=== PATIENT | male | born 1985 | race Caucasian/White ===

== ENCOUNTER 2020-01-04 19:01 | Emergency (ER) | payer BC, SELFPAY ==
--- NOTE | ~2020-01-04 | XR_ITS ---
EXAMINATION: XR foot LT min 3V EXAM DATE: 01/04/2020 19:38 INDICATION: Initial encounter following injury, with pain of the left foot. TECHNIQUE: Left foot dorsoplantar, lateral and oblique projections obtained and reviewed. There is n o prior study for comparison. FINDINGS: Left metatarsal bones unremarkable. There are no acute fractures or dislocations identifi ed. There is no subcutaneous gas. The soft tissue is unremarkable. There are no radiopaque foreig n bodies. IMPRESSION: No acute osseous findings. Reviewed, dictated and finalized at location A. IMPRESSION: No acute osseous findings.
[2020-01-04 19:17] VITALS: BP 131/80; PULSE 82; RESP 18; TEMP 36.8; O2SAT 100
--- NOTE | 2020-01-04 19:18 | ED_ITS ---
HPI - Extremity Injury (Lower) General Chief Complaint: Extremity Injury, Lower Stated Complaint: L foot pain Time Seen by Provider: 01/04/20 19:18 History of Present Illness HPI Narrative: 34-year-old male patient is here with chief complaints of pain in the left foot. Patient states that he dropped a railroad tie on his left foot. He states that the injury occurred this evening prior to coming here. The patient states that he is not able to bear weight on his left foot. The pa in is located to the middle of the foot. He denies any other injuries. The patient is otherwise healthy with the exception of hypertension and is currently on medication for that Related Data Allergies Allergy/AdvReac Type Severity Reaction Status Date / Time No Known Allergies Allergy Verified 01/02/20 08:42 Review of Systems Review of Systems: All systems reviewed & are unremarkable except as noted in HPI and below PMFSH Past Medical History Medical History HTN (hypertension) Sleep apnea Tobacco dependence Family History Family History Mother Family history of type 2 diabetes mellitus Hypertension Father Hypertension Acute myocardial infarction Family history of type 2 diabetes mellitus Social History Social History Smoking packs per day: 0.5 Smoking cigarettes per day: 10.0 Smoking status: Current every day smoker Exam Const: General: healthy appearing, no acute distress and alert Nutritional Appearance: well nourished Orientation/consciousness: patient oriented x3 Resp: Effort & Inspection: normal respiratory effort Auscultation: clear to auscultation bilaterally Cardio: Rate: regular rate Rhythm: regular rhythm Skin: General skin exam: normal color Rashes: no rashes Neuro: General: patient oriented x3 Speech: normal speech Extrem: Other: there is mild erythema noted to the mid dorsal foot on the left side. There is no obvious deformity or swelling. There is some tenderness on palpation of the mid foot however the ankle joint is stable and the range of motion is nontender and the ankle joint. No open wounds are noted and there is no significant bruising or ecchymosis noted. Course Course Emergency Course: Patient is aware of the negative x-ray. Will William wrap the left foot and he will be discharged home. He is advised to take Tylenol/ ibuprofen as needed for pain. He is not restricted from weight-bearing at all. Discharge Plan Discharge Clinical Impression: Contusion of foot Patient Disposition: Home, Self-Care Condition: Stable Additional Instructions: Ice and elevate the foot tonight. Wear the William wrap for comfort. Tylenol 500 mg ibuprofen 400 mg every 8 hours as needed for pain and discomfort. Follow-up with her primary care physician as needed Prescriptions: No Action lisinopril 20 mg tablet 20 mg PO DAILY Qty: 90 RF: 0 Follow-up/Referrals: Lidia Bahena NP [Primary Care Provider] - 1 Week Time of Disposition: 20:19
== END 2020-01-04 20:34 | disposition home or self-care (01) ==
PROVIDERS: Emergency Provider Emergency Medicine; PCP Nurse Practitioner Family
DX: S90.32XA Contusion of left foot, initial encounter (principal); W22.8XXA Striking against or struck by other objects, initial encounter
CPT/HCPCS: 73630; 99282; 99283

== ENCOUNTER 2020-01-09 08:12 | Outpatient (CLI) | payer BC, SELFPAY ==
--- NOTE | ~2020-01-09 | XR_ITS ---
XR foot LT min 3V DATE: 01/09/2020 08:37 INDICATION: Medial pain, swelling, ecchymosis after crushing injury TECHNIQUE: 4 views COMPARISON: 01/04/2020 left foot FINDINGS: There is mild posterior and slight plantar calcaneal enthesopathy. No fracture, dislocation, periosteal reaction or bone destruction. IMPRESSION: Calcaneal enthesopathy Reviewed, dictated and finalized at location A. IMPRESSION: Calcaneal enthesopathy
[2020-01-09 08:23] LABS: Hematocrit 45.2 % (40.0-54.0); Hemoglobin 15.1 g/dL (14.0-18.0); Mean Corpuscular HGB Conc 33.4 g/dL (32.0-36.0); Mean Corpuscular Hemoglobin 30.1 pg (27.0-31.0); Mean Platelet Volume 9.2 fl (8.7-11.0); Platelet Count Result 348 K/mm3 (150-420); Red Blood Count 5.02 M/mm3 (4.70-6.10); Red Cell Distribution Width 12.5 % (11.6-14.4); White Blood Count 8.9 K/mm3 (4.8-10.8)
[2020-01-09 09:03] LABS: Alanine Aminotransferase 33 U/L (16-63); Albumin Level 3.7 g/dL (3.4-5.0); Alkaline Phosphatase 101 U/L (46-116); Anion Gap 9 mmol/L (8-16); Aspartate Amino Transferase 16 U/L (15-37); Bilirubin,Total 0.4 mg/dL (0.00-1.00); Blood Urea Nitrogen 9 mg/dL (7-18); Calcium 8.9 mg/dL (8.5-10.1); Carbon Dioxide 25 mmol/L (21-32); Chloride 105 mmol/L (98-108); Cholesterol 198 mg/dL (0-200); Estimated Glomerular Filt Rate > 60; Glucose 103 mg/dL (70-99); HDL Direct 53 mg/dL (40-60); LDL Cholesterol Calculated 123 mg/dL (<130); Osmolality Calculated 286 mOsm/kg (285-295); Potassium 4.5 mmol/L (3.5-5.1); Sodium 139 mmol/L (136-145); Total Protein 6.5 g/dL (6.4-8.2); Triglycerides 109 mg/dL (0-150)
== END 2020-01-09 08:13 | disposition home or self-care (01) ==
LOC: CHSLAB 08:15
PROVIDERS: PCP Family Medicine; Visit Provider Family Medicine
DX: M79.672 Pain in left foot (principal); M79.89 Other specified soft tissue disorders; I10 Essential (primary) hypertension
CPT/HCPCS: 36415; 73630; 80053; 80061; 85027

== ENCOUNTER 2020-01-16 13:24 | Outpatient (CLI) | payer BC, SELFPAY ==
--- NOTE | 2020-01-16 13:28 | ECG_ITS ---
Measurements Intervals [place] Rate: 60 P: 47 IN: 157 QRS: 9 QRSD: 105 T: 20 QT: 407 QTc: 409 Interpretive Statements SINUS RHYTHM MINIMAL Q WAVES- HIGH LATERAL LEADS BORDERLINE ECG Electronically Signed On 01-16-2020 16:49:02 CDT by Jose Bowen D.O.
[2020-01-16 13:37] LABS: Hematocrit 46.7 % (40.0-54.0); Hemoglobin 15.8 g/dL (14.0-18.0); Mean Corpuscular HGB Conc 33.8 g/dL (32.0-36.0); Mean Corpuscular Hemoglobin 30.7 pg (27.0-31.0); Mean Corpuscular Volume 90.9 fL (78.0-102.0); Mean Platelet Volume 9.4 fl (8.7-11.0); Platelet Count Result 336 K/mm3 (150-420); Red Blood Count 5.14 M/mm3 (4.70-6.10); Red Cell Distribution Width 12.2 % (11.6-14.4); White Blood Count 9.6 K/mm3 (4.8-10.8)
[2020-01-16 14:02] LABS: Troponin I < 0.02 ng/mL (0.00-0.056)
[2020-01-16 14:10] LABS: BNP 50 pg/mL (0-100)
== END 2020-01-16 13:25 | disposition home or self-care (01) ==
LOC: CHSCARD 13:28
PROVIDERS: PCP Family Medicine; Visit Provider Family Medicine
DX: R07.9 Chest pain, unspecified (principal)
CPT/HCPCS: 36415; 83880; 84484; 85027; 93005

== ENCOUNTER 2020-01-22 09:02 | Outpatient (CLI) | payer BC, SELFPAY ==
--- NOTE | 2020-01-22 09:03 | EST_ITS ---
Patient Info Name: Candido Quintanilla Age: 34 years : 1985 Gender: Male Ht: 68 in Wt: 229 lbs BSA: 2.27 m2 HR: 88 bpm BP: 139 / 84 mmHg Heart Rhythm: Sinus Rhythm Technical Quality: Good Exam Date: 01/22/2020 9:14 AM Exam Location: [facility] Patient Status: Outpatient Admit Date: 01/22/2020 Staff Ordering Physician: Kash Mak DO Attending Provider: Eufemia JERONIMO CEP Referring Physician: Kash Mak; Exercise Technologist: Sadia Andrew CRT Exercise Physician: Any Jeronimo CEP Exam Type: CA stress test treadmill Study Info Indications Chest - An exercise stress test was performed. History/Risk Factors Hypertension: Yes Family History: Coronary Artery Disease History/Risk Factors Hypertension, Family History, Smoker. Summary 1. 1. Negative Huy exercise stress test for ischemic ST changes by ECG criteria. 2. 2. Good functional capacity, achieving 12 METs of workload. 3. 3. Appropriate HR response to exercise. 4. 4. Appropriate HR recovery at 1 minute post exercise. 5. 5. No imaging with stress testing. Protocol: Huy Stress ECG Details Stage: REST Duration (min): 0 min : 52 sec Speed (mph): 0.0 Grade (%): 0 HR (bpm): 88 SBP (mmHg): 139 DBP (mmHg): 94 METS: --- Stage: REST Duration (min): 2 min : 49 sec Speed (mph): 0.0 Grade (%): 0 HR (bpm): 88 SBP (mmHg): 139 DBP (mmHg): 94 METS: --- Stage: STAGE 1 Duration (min): 1 min : 0 sec Speed (mph): 1.7 Grade (%): 10 HR (bpm): 101 SBP (mmHg): 139 DBP (mmHg): 94 METS: --- Stage: STAGE 1 Duration (min): 2 min : 0 sec Speed (mph): 1.7 Grade (%): 10 HR (bpm): 107 SBP (mmHg): 139 DBP (mmHg): 94 METS: --- Stage: STAGE 1 Duration (min): 3 min : 0 sec Speed (mph): 1.7 Grade (%): 10 HR (bpm): 111 SBP (mmHg): 169 DBP (mmHg): 92 METS: --- Stage: STAGE 2 Duration (min): 1 min : 0 sec Speed (mph): 2.5 Grade (%): 12 HR (bpm): 118 SBP (mmHg): 169 DBP (mmHg): 92 METS: --- Stage: STAGE 2 Duration (min): 2 min : 0 sec Speed (mph): 2.5 Grade (%): 12 HR (bpm): 125 SBP (mmHg): 169 DBP (mmHg): 92 METS: --- Stage: STAGE 2 Duration (min): 3 min : 0 sec Speed (mph): 2.5 Grade (%): 12 HR (bpm): 125 SBP (mmHg): 178 DBP (mmHg): 79 METS: --- Stage: STAGE 3 Duration (min): 1 min : 0 sec Speed (mph): 3.4 Grade (%): 14 HR (bpm): 135 SBP (mmHg): 178 DBP (mmHg): 79 METS: --- Stage: STAGE 3 Duration (min): 2 min : 0 sec Speed (mph): 3.4 Grade (%): 14 HR (bpm): 143 SBP (mmHg): 178 DBP (mmHg): 79 METS: --- Stage: STAGE 3 Duration (min): 3 min : 0 sec Speed (mph): 3.4 Grade (%): 14 HR (bpm): 146 SBP (mmHg): 210 DBP (mmHg): 81 METS: --- Stage: STAGE 4 Duration (min): 1
== END 2020-01-22 09:03 | disposition home or self-care (01) ==
PROVIDERS: PCP Family Medicine; Visit Provider Family Medicine
DX: R07.9 Chest pain, unspecified (principal)
CPT/HCPCS: 93017

== ENCOUNTER 2020-04-10 12:05 | Outpatient (CLI) | payer BC, SELFPAY ==
[2020-04-10 12:34] LABS: SARS-CoV-2 Ag Positive (Negative)
== END 2020-04-10 12:06 | disposition home or self-care (01) ==
LOC: CHSLAB 12:09
PROVIDERS: PCP Family Medicine; Visit Provider Family Medicine
DX: U07.1 COVID-19 (principal); R43.2 Parageusia
CPT/HCPCS: 87426

== ENCOUNTER 2023-06-15 14:31 | Outpatient (CLI) | payer BC, SELFPAY ==
[2023-06-15 14:45] LABS: Basophils Absolute Auto 0.06 K/mm3 (0.00-0.10); Basophils Percent Auto 0.6 % (0.0-1.0); Eosinophils Absolute Auto 0.44 K/mm3 (0.02-0.50); Eosinophils Percent Auto 4.8 % (1.0-6.0); Hematocrit 47.2 % (40.0-54.0); Hemoglobin 16.1 g/dL (14.0-18.0); Immature Granulocyte Absolute 0.02 K/mm3 (0.00-0.00); Immature Granulocyte Percent A 0.2 % (0.0-0.0); Lymphocytes Absolute Auto 2.72 K/mm3 (1.10-4.50); Lymphocytes Percent Auto 29.4 % (18.0-42.0); Mean Corpuscular HGB Conc 34.1 g/dL (32.0-36.0); Mean Corpuscular Hemoglobin 30.2 pg (27.0-31.0); Mean Corpuscular Volume 88.6 fL (78.0-102.0); Mean Platelet Volume 9.5 fl (8.7-11.0); Monocytes Absolute Auto 0.77 K/mm3 (0.10-0.90); Monocytes Percent Auto 8.3 % (2.0-11.0); Neutrophils Absolute Auto 5.3 K/mm3 (1.7-7.2); Neutrophils Percent Auto 56.7 % (50.0-70.0); Platelet Count Result 383 K/mm3 (150-420); Red Blood Count 5.33 M/mm3 (4.70-6.10); Red Cell Distribution Width 12.6 % (11.6-14.4); White Blood Count 9.3 K/mm3 (4.8-10.8)
[2023-06-15 15:15] LABS: Alanine Aminotransferase 52 U/L (16-63); Albumin Level 4.3 g/dL (3.4-5.0); Alkaline Phosphatase 105 U/L (46-116); Anion Gap 11 mmol/L (8-16); Aspartate Amino Transferase 21 U/L (15-37); Bilirubin,Total 0.4 mg/dL (0.00-1.00); Blood Urea Nitrogen 13 mg/dL (7-18); Calcium 9.3 mg/dL (8.5-10.1); Carbon Dioxide 26 mmol/L (21-32); Chloride 99 mmol/L (98-108); Cholesterol 244 mg/dL (0-200); Estimated Glomerular Filt Rate > 60; Glucose 96 mg/dL (70-99); HDL Direct 53 mg/dL (40-60); LDL Cholesterol Calculated 119 mg/dL (<130); Osmolality Calculated 282 mOsm/kg (285-295); Potassium 4.1 mmol/L (3.5-5.1); Sodium 136 mmol/L (136-145); Total Protein 7.2 g/dL (6.4-8.2); Triglycerides 358 mg/dL (0-150)
== END 2023-06-15 14:32 | disposition home or self-care (01) ==
LOC: CHSLAB 14:33
PROVIDERS: PCP Family Medicine; Visit Provider Family Medicine
DX: I10 Essential (primary) hypertension (principal)
CPT/HCPCS: 36415; 80053; 80061; 85025